=== PATIENT | female | born 1945 | race Caucasian/White ===

== ENCOUNTER → 2016-11-09 | Outpatient (CLI) | payer OTHER | LOC: FIMAGING 12:49 | PROVIDERS: ATTEND Allergy & Immunology Allergy | DX: J42 Unspecified chronic bronchitis (principal); J45.909 Unspecified asthma, uncomplicated; R91.8 Other nonspecific abnormal finding of lung field ==

== ENCOUNTER → 2016-12-07 | Outpatient (CLI) | payer OTHER | LOC: BMCIMAGING 09:34 | DX: Z12.31 Encounter for screening mammogram for malignant neoplasm of breast (principal) | CPT/HCPCS: G0202 ==

== ENCOUNTER → 2017-06-08 | Outpatient (CLI) | payer OTHER | LOC: FIMAGING 10:11 | PROVIDERS: ATTEND Internal Medicine Endocrinology, Diabetes & Metabolism | DX: M81.0 Age-related osteoporosis without current pathological fracture (principal) ==

== ENCOUNTER → 2017-08-02 | Outpatient (CLI) | payer OTHER | LOC: BMCIMAGING 13:16 | PROVIDERS: ATTEND Nurse Practitioner Family | DX: M48.54XD Collapsed vertebra, not elsewhere classified, thoracic region, subsequent encounter for fracture with routine healing (principal); M51.34 Other intervertebral disc degeneration, thoracic region; Z87.01 Personal history of pneumonia (recurrent) | CPT/HCPCS: 86631-90 ==

== ENCOUNTER 2017-11-03 11:11 | Emergency (ER) | payer OTHER ==
--- NOTE | 2017-11-03 11:15 | EDPHY ---
H & P Time Seen by Provider: 11/03/17 11:14 HPI/ROS: CHIEF COMPLAINT: Right ankle injury HISTORY OF PRESENT ILLNESS: Patient was walking on the street just prior to arrival and twisted her right ankle causing pain and inability to walk. Does not radiate. Mild at rest but severe with weight-bearing. Started just after the injury. No other complaints. REVIEW OF SYSTEMS: Eye: no change in vision ENT: no sore throat Cardiac: no chest pain or syncope Pulmonary: no cough or SOB Abdomen: no vomiting, diarrhea, abdominal pain Musculoskeletal: HPI Skin: no rash Neuro: no headache Constitutional: no fever : no urinary symptoms A comprehensive 10 point review of systems is otherwise negative aside from elements mentioned in the history of present illness. PAST MEDICAL HISTORY: Hypothyroid, osteoporosis Social history: General Appearance: Alert and conversant, cooperative. Eyes: No scleral icterus. ENT, Mouth: Normal mucous membranes. Respiratory: Normal respiratory effort, breath sounds equal, lungs are clear to auscultation. Cardiovascular: Regular rate and rhythm. Gastrointestinal: Abdomen is soft and non tender. Neurological: Alert, face symmetric, normal motor and sensory in extremities. Normal motor and sensory in the right foot. Skin: No laceration over the area of swelling. Musculoskeletal: Lateral right ankle swelling and tenderness on the malleolus. Ankle joint is stable. Normal range of motion of the right knee and no proximal tib-fib tenderness. No foot tenderness. Psychiatric: Not agitated. Emergency Department course/MDM: Declined pain medication. Right ankle x-ray performed; at 11:45 a.m. results reviewed with the patient on the computer system. X-ray personally interpreted shows minimally displaced distal right fibular fracture. She is [facility] primary care so was referred to computer systems information director [facility] orthopedist. I told her it is possible she will be treated non operatively but the definitive decision will me made by the orthopedics specialist in follow-up. Procedure: Splint placement. A right posterior Ortho Glass splint was applied. After application of the splint I returned and re-examined the patient at 1204. The splint was adequately immobilizing the joint and distal to the splint the patient's circulation and sensation was intact. Constitutional: Initial Vital Signs Temperature (C) 36.9 C 11/03/17 11:15 Heart Rate 69 11/03/17 11:15 Respiratory Rate 18 11/03/17 11:15 Blood Pressure 190/87 H 11/03/17 11:15 O2 Sat (%) 95 11/03/17 11:15 O2 Delivery Mode Room Air Allergies/Adverse Reactions: aspirin Allergy (Intermediate, Verified 07/22/13 11:53) Causes GI bleed/gastritis Home Medications: Medication Instructions Recorded Acetaminophen [Tylenol Tablet] 500 mg PO TID PRN 07/22/13 Calcium Carb/Vit D3/Minerals 1 each PO SUTUTHSA@18 07/22/13 [Calcium 1,200 mg Tablet Chew] Cholecalciferol Vit D3 [Vitamin D3 1,000 units PO DAILY18 07/22/13 1000 units (OTC)] Levothyroxine [Synthroid 100 mcg 100 mcg PO DAILY06 07/22/13 (RX)] Montelukast Sodium [Singulair 10 10 mg PO DAILY@1800 07/22/13 mg (RX)] Multivit with Calcium,Iron,Min 1 each PO MWF@18 07/22/13 [Therapeutic M] [place]-3 Fatty Acids [Fish Oil 1000 1,000 mg PO DAILY18 07/22/13 mg (OTC)] Tears/Hypromellose [Natural 1 drop EACHEYE PRN PRN 07/22/13 Balance (OTC)] ALVESCO 11/03/17 Serevent Diskus (*) 11/03/17 Xopenex 11/03/17 Medical Decision Making - Diagnostics Imaging Results: Imaging Impressions Ankle X-Ray 11/03/17 11:15 Impression: Mildly displaced fracture of the distal right fibula at the lateral malleolus. Differential Diagnosis: Differential considered including but not limited to ankle fracture, ankle dislocation, ankle sprain, foot fracture. Departure - Departure Disposition: Home, Routine, Self-Care Clinical Impression: Closed fibular fracture Qualifiers: Encounter type: initial encounter Fibula location: distal Fracture morphology: unspecified fracture morphology Laterality: right Qualified Code(s): S82.831A - Other fracture of upper and lower end of right fibula, initial encounter for closed fracture Condition: Good Instructions: Ankle Fracture (ED), Crutch Instructions (ED), Splint Care (ED) Additional Instructions: Non weight bearing on right leg; followup orthopedics early next week. Referrals: Michelle Kaur MD [Primary Care Provider] - As per Instructions Matt Joiner MD [Medical Doctor] - As per Instructions
[2017-11-03 11:18] VITALS: RESP 18; TEMP 98.4
[2017-11-03 12:31] VITALS: BP 171/56; PULSE 72; O2SAT 98
== END 2017-11-03 12:20 | disposition home or self-care (01) ==
LOC: EDUNIT#
DX: S82.831A Other fracture of upper and lower end of right fibula, initial encounter for closed fracture (principal); X58.XXXA Exposure to other specified factors, initial encounter; Y92.410 Unspecified street and highway as the place of occurrence of the external cause; Y99.8 Other external cause status; Y93.01 Activity, walking, marching and hiking

== ENCOUNTER → 2017-11-28 | Outpatient (CLI) | payer OTHER | LOC: BMCIMAGING 08:19 → EDSTATUS 08:22 | PROVIDERS: ATTEND Podiatrist Foot & Ankle Surgery | DX: S82.821D Torus fracture of lower end of right fibula, subsequent encounter for fracture with routine healing (principal) ==

== ENCOUNTER → 2018-01-23 | Outpatient (CLI) | payer OTHER | LOC: BMCIMAGING 09:53 | PROVIDERS: ATTEND Podiatrist Foot & Ankle Surgery | DX: S82.821D Torus fracture of lower end of right fibula, subsequent encounter for fracture with routine healing (principal) ==

== ENCOUNTER → 2018-02-05 | Outpatient (CLI) | payer OTHER | LOC: FIMAGING 11:07 | PROVIDERS: ATTEND Allergy & Immunology Allergy | DX: J98.4 Other disorders of lung (principal); M48.54XA Collapsed vertebra, not elsewhere classified, thoracic region, initial encounter for fracture ==

== ENCOUNTER → 2018-03-20 | Outpatient (CLI) | payer OTHER | LOC: BMCIMAGING 10:02 | PROVIDERS: ATTEND Podiatrist Foot & Ankle Surgery | DX: S82.831D Other fracture of upper and lower end of right fibula, subsequent encounter for closed fracture with routine healing (principal) ==

== ENCOUNTER → 2018-04-17 | Outpatient (CLI) | payer OTHER | LOC: BMCIMAGING 10:13 | PROVIDERS: ATTEND Podiatrist Foot & Ankle Surgery | DX: S82.821D Torus fracture of lower end of right fibula, subsequent encounter for fracture with routine healing (principal) ==

== ENCOUNTER → 2018-10-18 | Outpatient (CLI) | payer OTHER | LOC: BMCIMAGING 11:12 | PROVIDERS: ATTEND Family Medicine | DX: M54.5 Low back pain (principal); M53.3 Sacrococcygeal disorders, not elsewhere classified ==

== ENCOUNTER → 2018-10-24 | Outpatient (CLI) | payer OTHER | LOC: FIMAGING 09:56 | PROVIDERS: ATTEND Internal Medicine Endocrinology, Diabetes & Metabolism | DX: M81.0 Age-related osteoporosis without current pathological fracture (principal) ==

== ENCOUNTER → 2018-11-08 | Outpatient (CLI) | payer OTHER | LOC: BMCIMAGING 10:39 | PROVIDERS: ATTEND Physician Assistant | DX: M25.521 Pain in right elbow (principal) ==

== ENCOUNTER → 2018-11-12 | Outpatient (CLI) | payer OTHER | LOC: BMCIMAGING 12:43 | PROVIDERS: ATTEND Internal Medicine | DX: Z12.31 Encounter for screening mammogram for malignant neoplasm of breast (principal) ==

== ENCOUNTER → 2019-01-08 | Outpatient (CLI) | payer OTHER | LOC: BMCIMAGING 08:34 | PROVIDERS: ATTEND Physician Assistant | DX: M25.562 Pain in left knee (principal) ==